=== PATIENT | female | born 1960 | race Two or more races ===

== ENCOUNTER 2017-10-08 06:22 | Inpatient (IN) | payer OTHER, MEDICAID ==
[~2017-10-08] VITALS: Ht 162.6 cm; Wt 59.0 kg
--- NOTE | 2017-10-08 06:30 | NUR ---
TO BED 4 A 56 YO FEMALE PT BB SISTER FROM [facility] C/O CP RADIATING TO NECK 04/13 ON/OFF 3 WEEKS. VSS. NAD NOTED. SKIN WARM AND DRY. PLACED PATIENT ON TELE AND VS MONITORING. GOWNED. COMFORT MEASURES RENDERED.
[2017-10-08] MEDS ORDERED: ONDANSETRON HCL/PF 4 MG/2 ML VIAL ONE (06:35)
[2017-10-08] MEDS ORDERED: HYDROMORPHONE 1 MG/1 ML DISP.SYRIN ONE (06:35)
--- NOTE | 2017-10-08 06:50 | NUR ---
started on the left forearm g18, blood drawn and sent to lab.
--- NOTE | 2017-10-08 06:55 | NUR ---
medicated patient as ordered by Dr Westbrook.
[2017-10-08] MEDS ORDERED: HYDROMORPHONE 1 MG/1 ML DISP.SYRIN IV ONE (07:00)
[2017-10-08] MEDS ORDERED: IV NS 0.9% 1,000 ML BAG IV ONE (07:00)
[2017-10-08] MEDS ORDERED: ONDANSETRON HCL/PF 4 MG/2 ML VIAL IVP ONE (07:00)
--- NOTE | 2017-10-08 07:16 | NUR ---
Endorsed care to Maribel [place] for shaina.
[2017-10-08 07:22] LABS: BASOPHILS % (AUTO) 0.3 % (0.0-2.0); EOSINOPHILS # (AUTO) 0.3 /CMM (0.0-0.7); EOSINOPHILS % (AUTO) 3.5 % (0.0-6.0); HEMATOCRIT 36 % (33-45); HEMOGLOBIN 11.9 g/dL (11.5-14.8); LYMPHOCYTES # (AUTO) 3.4 /CMM (0.8-4.8); LYMPHOCYTES % (AUTO) 37.6 % (20.0-44.0); MEAN CORPUSCULAR HEMOGLOBIN 26 PG (26.0-33.0); MEAN CORPUSCULAR HGB CONC 33 g/dl (31.0-36.0); MEAN CORPUSCULAR VOLUME 79 fL (82-100); MONOCYTES # (AUTO) 0.4 /CMM (0.1-1.30); MONOCYTES % (AUTO) 4.4 % (2.0-12.0); NEUTROPHILS # (AUTO) 4.9 /CMM (1.8-8.9); NEUTROPHILS % (AUTO) 54.2 % (43.0-81.0); PLATELET COUNT (AUTO) 409 /CMM (150-450); RDW COEFFICIENT OF VARIATION 16.8 (11.5-15.0); RED BLOOD CELL COUNT(AUTO) 4.52 MIL/uL (4.0-5.2); WHITE BLOOD COUNT (AUTO) 9.1 K/uL (4.3-11.0)
[2017-10-08 07:30] LABS: CALCIUM, SERUM 10.3 mg/dL (8.5-10.1); CREATININE 0.9 mg/dL (0.6-1.3); POTASSIUM 4.4 mmol/L (3.5-5.1)
[2017-10-08 07:36] LABS: ALBUMIN 2.8 g/dL (3.4-5.0); BILIRUBIN,TOTAL 0.2 mg/dL (0.2-1.0); TOTAL PROTEIN, SERUM 11.5 g/dL (6.4-8.2)
[2017-10-08 07:49] LABS: APPEARANCE,URINE CLEAR (CLEAR); BILIRUBIN,URINE NEGATIVE (NEGATIVE); BLOOD, URINE NEGATIVE Ery/uL (NEGATIVE); COLOR,URINE YELLOW (YELLOW); KETONES,URINE NEGATIVE (NEGATIVE); LEUKOCYTE ESTERASE ,URINE 1+ (NEGATIVE); NITRITE, URINE NEGATIVE (NEGATIVE); PH,URINE 5.5 (5.0-8.0); PROTEIN,URINE NEGATIVE (NEGATIVE); UGLUCOSE NEGATIVE (NEGATIVE); UROBILINOGEN,URINE 0.2 EU/dL (0.2)
[2017-10-08 07:51] LABS: INR 1.05 (0.87-1.13); TROPONIN I 0.443 ng/mL (0.00-0.056)
[2017-10-08 07:58] LABS: BACTERIA,URINE Few /HPF (None Seen); SQUAMOUS EPITHELIAL CELL,UR Few /HPF (None Seen)
[2017-10-08 08:00] LABS: RBC,URINE 0-2 /HPF (0-2)
--- NOTE | 2017-10-08 08:05 | NUR ---
PT TAKEN TO CT.
[2017-10-08] MEDS ORDERED: ASPIRIN 325 MG TABLET PO ONE (08:30)
[2017-10-08] MEDS ORDERED: ASPIRIN 325 MG TABLET ONE (08:39)
--- NOTE | 2017-10-08 08:55 | NUR ---
PAGED EPIC --- ALGORITHM DESIGN ENGINEER IS DR POLLARD.
--- NOTE | 2017-10-08 08:59 | NUR ---
FOOD TRAY PROVIDED- SOFT DIET REQUESTED BY PT.
--- NOTE | 2017-10-08 10:18 | NUR ---
REPORT GIVEN TO LUZ OH FOR TELE [phone].
[2017-10-08] MEDS ORDERED: MAGNESIUM HYDROXIDE 30 ML UDC PO PRN (10:30)
[2017-10-08] MEDS ORDERED: HYDROCODONE/APAP 5/325MG 1 EACH TABLET PO PRN (10:30)
[2017-10-08] MEDS ORDERED: Z GUARD REMEDY 2 OZ OINT TP PRN (10:30)
[2017-10-08] MEDS ORDERED: ACETAMINOPHEN 325 MG TABLET PO PRN (10:30)
[2017-10-08] MEDS ORDERED: MAG HYDROX/AL HYDROX/SIMETH 30 ML UDC PO PRN (10:30)
[2017-10-08] MEDS ORDERED: ONDANSETRON HCL/PF 4 MG/2 ML VIAL IVP PRN (10:30)
[2017-10-08] MEDS ORDERED: ZOLPIDEM TARTRATE 5 MG TABLET PO PRN (10:30)
[2017-10-08] MEDS ORDERED: ALPRAZOLAM 0.25 MG TABLET PO PRN (11:00)
[2017-10-08] MEDS ORDERED: SIMETHICONE 80 MG TAB.CHEW PO PRN (11:00)
[2017-10-08] MEDS: FAMOTIDINE (20 MG) 20 MG TABLET PO SCH ×2 (11:22→20:23)
--- NOTE | 2017-10-08 11:45 | NUR ---
ADMISSION NOTE RECEIVED PT FROM ER. PT ADMITTED FOR C/O CHEST PAIN AND INDIGESTION THAT HAS PERSISTED X 3 WEEKS. A/OX4, NO S/S OF SOB AND RESP DISTRESS. PT COMES FROM HOME, BUT IS A RESIDENT OF [place]. PT ADM TELE, CURRENTLY SR AT 79BPM W/ PVCS. ADMITTING DOCTOR IS DR. POLLARD. IV ACCESS LOCATED ON LEFT AC 18G WITH ORDERS PLACED FOR NS AT 75 ML/HR. PT HAS ELEVATED TROP AT 0.443. ADMISSION ORDERS PLACED. SAFETY MEASURES IN PLACE, CALL LIGHT WITHIN REACH. WILL CONTINUE TO MONITOR.
[2017-10-08] MEDS: HYDROMORPHONE INJ 0.5 MG/0.5 ML SYRINGE IV PRN ×2 (12:49→20:22)
[2017-10-08 13:07] VITALS: BP 118/79
[2017-10-08 16:19] VITALS: BP 122/83
[2017-10-08 20:00] VITALS: BP 115/68
--- NOTE | 2017-10-08 20:00 | NUR ---
RN OPENING NOTES PATIENT IS IN BED, ALERT AND ORIENTED X4. VS STABLE. NO C/O PAIN OR DISCOMFORT AT THIS TIME. NO SOB NOTED. RESPIRATIONS EVEN AND UNLABORED. IV ACCESS ON LEFT AC 18 G PATENT AND INTACT. TELE MONITOR IS IN PLACE, SR WITH PVCS 79 BPM. BED IN LOW AND LOCKED POSITION. SIDE RAILSX2. CALL LIGHT WITHIN EASY REACH. WILL CONTINUE TO MONITOR AND ASSESS DURING THE SHIFT.
[2017-10-09] VITALS (7 sets, daily range): BP systolic 98–126; BP diastolic 62–84
--- NOTE | 2017-10-09 05:03 | NUR ---
PATIENT SLEPT COMFORTABLE THIS SHIFT CHANGING HER OWN POSITION. AMBULATED TO THE BATHROOM WITH STANDBY NOTED NO SOB OR WEAKNESS WITH AMBULATION PATIENT TOLD SHE WILL BE NPO UNTIL SEEN BY THE [employer] IN THE AM2/5 .SHE IS ALERT AND ORIENTATED X4 SPEECH CLEAR MOVING ALL EXTREMITIES AND NO C/O CHESTPAIN THIS SHIFT.NO EDEMA NOTED
[2017-10-09] MEDS: HYDROMORPHONE INJ 0.5 MG/0.5 ML SYRINGE IV PRN ×3 (05:49→13:11)
--- NOTE | 2017-10-09 06:06 | NUR ---
MEDICATED WITH DILAUDID 0.25 MG FOR C/O OF ACHING PAIN OF A SCALE OF 8 AREA COLLAR BONE AREA AND UP
[2017-10-09 06:53] LABS: BASOPHILS % (AUTO) 0.5 % (0.0-2.0); EOSINOPHILS # (AUTO) 0.2 /CMM (0.0-0.7); EOSINOPHILS % (AUTO) 2.6 % (0.0-6.0); HEMATOCRIT 34 % (33-45); HEMOGLOBIN 11.3 g/dL (11.5-14.8); LYMPHOCYTES # (AUTO) 1.9 /CMM (0.8-4.8); LYMPHOCYTES % (AUTO) 28.6 % (20.0-44.0); MEAN CORPUSCULAR HEMOGLOBIN 26 PG (26.0-33.0); MEAN CORPUSCULAR HGB CONC 33 g/dl (31.0-36.0); MEAN CORPUSCULAR VOLUME 79 fL (82-100); MONOCYTES # (AUTO) 0.5 /CMM (0.1-1.30); MONOCYTES % (AUTO) 6.9 % (2.0-12.0); NEUTROPHILS # (AUTO) 4.2 /CMM (1.8-8.9); NEUTROPHILS % (AUTO) 61.4 % (43.0-81.0); PLATELET COUNT (AUTO) 377 /CMM (150-450); RDW COEFFICIENT OF VARIATION 16.3 (11.5-15.0); RED BLOOD CELL COUNT(AUTO) 4.29 MIL/uL (4.0-5.2); WHITE BLOOD COUNT (AUTO) 6.8 K/uL (4.3-11.0)
[2017-10-09 07:18] LABS: CALCIUM, SERUM 8.5 mg/dL (8.5-10.1); CREATININE 0.8 mg/dL (0.6-1.3); MAGNESIUM 1.5 mg/dL (1.8-2.4); POTASSIUM 4.2 mmol/L (3.5-5.1)
[2017-10-09 07:23] LABS: THYROID STIMULATING HORMONE 5.061 uIU/mL (0.358-3.74)
--- NOTE | 2017-10-09 08:00 | NUR ---
rn notes received patient in the room resting in the bed. no acute respiratory distress, v/s taken stable, iv line on left ac are intact, call light within to reach, safety precaution maintained all the time.
--- NOTE | 2017-10-09 09:00 | NUR ---
RN NOTES PATIENT FOCUSED SMOKING AT THIS TIME. TEACH PATIENT S/S OF CAUSES, AND REDUCES THE HEALTH. PATIENT STATE " I AM OLD ENOUGH AND I DO NOT NEED A TEACHING " . DR POLLARD AWARE OF . PER TOOL AND GAUGE INSPECTOR ESCORTED PATIENT TO THE OUTSIDE FOR SMOKE. CONTINUED MONITORING.
[2017-10-09] MEDS: FAMOTIDINE (20 MG) 20 MG TABLET PO SCH ×2 (09:14→21:24)
[2017-10-09] MEDS ORDERED: SOD FERRIC GLUC 125 MG in IV NS 0.9% 100 ML IV SCH (11:00)
[2017-10-09] MEDS: Magnesium 1GM/D5W 100ML PREMIX 100 ML IV SCH ×3 (11:43→13:43)
--- NOTE | 2017-10-09 13:11 | NUR ---
RN NOTES ADMINISTERED DILAUDID 0.25 MG /ML IV PUSH UPPER NECK PAIN 6/10, PER PATIENT REQUEST, V/S TAKEN BP-112/73, P-82, CALL LIGHT WITHIN TO REACH, CONTINUED MONITORING.
[2017-10-09] MEDS: IV NS 0.9% 1,000 ML IV PRN (17:21)
--- NOTE | 2017-10-09 18:19 | NUR ---
RN NOTES PATIENT SISTER STATES THAT PATIENT WAS TESTED IN ANOTHER STATE AND SHE RECEIVED CALL FOR RESENT BLOOD TEST RESULT STATING POSITIVE FOR SYPHILIS. NOTIFIED Dr POLLARD, AND GET NEW ORDER ID CONSULTATION. ORDER TAKEN AND CARRIED OUT.
--- NOTE | 2017-10-09 18:26 | NUR ---
RN NOTES PATIENT D/C FOR TELE.
--- NOTE | 2017-10-09 19:40 | NUR ---
RN NOTES PATIENT IN THE BED AFTER SMOKING, MEDICATING WERE ADMINISTERED FOR PAIN EFFECTIVE, SISTER NEXT TO THE BED, CALL LIGHT WITHIN TO REACH. ENDORSED ONCOMING NURSE FOR FIDEL.
--- NOTE | 2017-10-09 19:40 | NUR ---
MS RN OPENING NOTES RECEIVED PATIENT RESTING IN BED, NO C/O PAIN, NO SOB, NO ACUTE DISTRESS NOTED @ THIS TIME. A & O X 4, AMBULATORY. ON MED SURGE. NO C/O CHEST PAIN VERBALIZED. SAFETY MEASURES & UNIVERSAL PRECAUTIONS ARE BEING OBSERVED. BED IN LOW LOCKED POSITION. CALL LIGHT WITHIN REACH. WILL CONTINUE TO MONITOR CLOSELY.
--- NOTE | 2017-10-10 00:15 | NUR ---
REFUSED IVF & REINSERTION IF IV LINE PATIENT HAD LEFT WRIST IV ACCESS BUT NOTED TO BE INFILTRATED. ATTEMPTED MULTIPLE TIMES TO REMOVE THE OLD IV & REINSERT NEW ONE BUT PT KEPT REFUSING STATING " I TAKE ENOUGH PO FLUIDS, I DON'T NEED IT " DESPITE OF EXPLANATION OF RISK & BENEFITS OF NOT HAVING IV ACCESS & IVF, PT STILL CONTINUED TO REFUSE. MD WAS PAGED & NOTIFIED. WILL ENCOURAGE PO FLUIDS TOLERATED. MONITORING CLOSELY.
--- NOTE | 2017-10-10 05:37 | NUR ---
CONTINUED REFUSING IV INSERTION RE APPROACHED THE PT SINCE SHE MENTIONED TO HAVE THE IV INSERTION DONE IN AM INSTEAD OF LAST NIGHT BUT SHE STILL CONTINUED REFUSING & WANTED TO BE LEFT ALONE TO SLEEP. WILL ENDORSE TO AM RN TO TRY TO INSERT IV CATHETER IF PT AGREES.
--- NOTE | 2017-10-10 06:27 | NUR ---
MS RN CLOSING NOTES PATIENT SLEPT WELL @ NIGHT. NO C/O PAIN, NO SOB, NO ACUTE DISTRESS NOTED @ THIS TIME. A & O X 4, BRP. ON MED SURGE. NO C/O CHEST PAIN VERBALIZED. OLD IV ACCESS TO LEFT WRIST WHICH IS INFILTRATED BUT PT REFUSED TO TAKE IT OUT & SAID DO IT IN THE MORNING BUT WHEN TRIED IN AM, SHE STILL CONTINUED TO REFUSE. SAFETY MEASURES & UNIVERSAL PRECAUTIONS ARE BEING OBSERVED. BED IN LOW LOCKED POSITION. CALL LIGHT WITHIN REACH. WILL ENDORSE TO AM RN FOR CONTINUITY OF CARE.
[2017-10-10 06:57] LABS: BASOPHILS % (AUTO) 0.2 % (0.0-2.0); EOSINOPHILS # (AUTO) 0.1 /CMM (0.0-0.7); EOSINOPHILS % (AUTO) 1.8 % (0.0-6.0); HEMATOCRIT 34 % (33-45); HEMOGLOBIN 11.4 g/dL (11.5-14.8); LYMPHOCYTES # (AUTO) 1.7 /CMM (0.8-4.8); LYMPHOCYTES % (AUTO) 21.5 % (20.0-44.0); MEAN CORPUSCULAR HEMOGLOBIN 26 PG (26.0-33.0); MEAN CORPUSCULAR HGB CONC 34 g/dl (31.0-36.0); MEAN CORPUSCULAR VOLUME 78 fL (82-100); MONOCYTES # (AUTO) 0.4 /CMM (0.1-1.30); MONOCYTES % (AUTO) 4.4 % (2.0-12.0); NEUTROPHILS # (AUTO) 5.9 /CMM (1.8-8.9); NEUTROPHILS % (AUTO) 72.1 % (43.0-81.0); PLATELET COUNT (AUTO) 368 /CMM (150-450); RDW COEFFICIENT OF VARIATION 16.5 (11.5-15.0); RED BLOOD CELL COUNT(AUTO) 4.33 MIL/uL (4.0-5.2); WHITE BLOOD COUNT (AUTO) 8.1 K/uL (4.3-11.0)
[2017-10-10 07:05] LABS: CALCIUM, SERUM 8.5 mg/dL (8.5-10.1); CREATININE 0.9 mg/dL (0.6-1.3); MAGNESIUM 2.1 mg/dL (1.8-2.4); PHOSPHORUS 3.6 mg/dL (2.5-4.9); POTASSIUM 4.6 mmol/L (3.5-5.1)
[2017-10-10 08:00] VITALS: BP 104/70
--- NOTE | 2017-10-10 08:18 | NUR ---
MS RN OPENING NOTES RECEIVED PATIENT IN BED ASLEEP COMFORTABLY, EASILY AROUSED WITH VERBAL STIMULI. ON ROOM AIR. NO SOB, NO SIGNS OF DISTRESS NOTED AT THIS TIME. A & O X 4, BRP. OLD IV ACCESS TO LEFT WRIST IS INFILTRATED, PATIENT REFUSED TO TAKE IT OUT DURING [employer] INST[employer]ER AND STILL CONTINUES TO REFUSE. SAFETY MEASURES & UNIVERSAL PRECAUTIONS ARE BEING OBSERVED. BED IN LOW LOCKED POSITION. CALL LIGHT WITHIN REACH. SIDE RAILS UP X2, WILL CONTINUE TO MONITOR.
[2017-10-10 09:00] VITALS: BP 104/70
[2017-10-10] MEDS: FAMOTIDINE (20 MG) 20 MG TABLET PO SCH ×2 (09:20→20:42)
[2017-10-10] MEDS: LEVOTHYROXINE SODIUM 100 MCG TABLET PO SCH (09:20)
[2017-10-10] MEDS: ASPIRIN 81 MG TAB.CHEW PO SCH (09:24)
--- NOTE | 2017-10-10 10:27 | NUR ---
Social service consult requested by Dr. Segal regarding homelessness. Pt. is a 56 year old female who was admitted to [facility] for Chest pain. SW met with pt. bedside. Pt's sister Yuliya was bedside. Pt. is alert and oriented x 3. Pt. was residing at [address] [place] [address] in [place] prior to hospitalization. However, pt. will be moving to [place] with her sister Yuliya. Pt's address in [place] is [address] [place] [address]. Pt's emergency contact is her sister Lexy . Pt. has a diagnosis of Bipolar. Pt. has a history of psychiatric hospitalizations. The last hospitalization was 15 years ago. Pt. is not taking any psychotropic medications at this time. Pt. denies suicidal/homicidal ideations and visual/auditory hallucinations at this time. Pt. denies alcohol and drug use. Pt. is unable to travel via plane at this time due to her heart attack. Pt's sister informed SW that she will transport her sister back to [place] upon discharge via car or train. No other social service needs are requested at this time. SW is available if needed.
[2017-10-10] MEDS: HYDROMORPHONE INJ 0.5 MG/0.5 ML SYRINGE IV PRN (14:48)
[2017-10-10] MEDS: SOD FERRIC GLUC 125 MG in IV NS 0.9% 100 ML IV SCH (14:58)
[2017-10-10 16:00] VITALS: BP 105/70
--- NOTE | 2017-10-10 19:25 | NUR ---
MS RN CLOSING NOTES PATIENT IN BED AWAKE, ALERT ORIENTED X 4. ON ROOM AIR. NO SOB, NO SIGNS OF DISTRESS NOTED AT THIS TIME. BRP. IV ACCESS IN LEFT FA, HL 24G. PATIENT AND INTACT. SAFETY MEASURES & UNIVERSAL PRECAUTIONS ARE BEING OBSERVED. BED IN LOW LOCKED POSITION. CALL LIGHT WITHIN REACH. SIDE RAILS UP X2. WILL ENDORSE TO PN SHIFT FOR CONTINUATION OF CARE.
--- NOTE | 2017-10-10 19:40 | NUR ---
MS RN OPENING NOTES RECEIVED PATIENT RESTING IN BED, SISTER @ BEDSIDE. NO C/O PAIN, NO SOB, NO ACUTE DISTRESS NOTED @ THIS TIME. A & O X 4, AMBULATORY. NO C/O CHEST PAIN VERBALIZED. IV ACCESS TO LFA, INTACT & PATENT RUNNING WITH NS ON & OFF SINCE PT REFUSES TO BE CONNECTED TO THE IVF CONTINUOUSLY. SAFETY MEASURES & UNIVERSAL PRECAUTIONS ARE BEING OBSERVED. BED IN LOW LOCKED POSITION. CALL LIGHT WITHIN REACH. WILL CONTINUE TO MONITOR CLOSELY.
[2017-10-10 20:00] VITALS: BP 111/73
--- NOTE | 2017-10-10 20:42 | NUR ---
PRN TYLENOL GIVEN PATIENT C/O MILD GENERALIZED BODY ACHE & REQUESTED TO TAKE TYLENOL. PRN TYLENOL GIVEN. WILL REASSESS FOR EFFECTIVENESS.
[2017-10-11 05:18] LABS: *BASOS 1 % (Not Estab.); *BASOS, ABSOLUTE 0.1 x10E3/uL (0.0-0.2); *EOS 3 % (Not Estab.); *EOS, ABSOLUTE 0.2 x10E3/uL (0.0-0.4); *HCT 35.1 % (34.0-46.6); *HGB 11.3 g/dL (11.1-15.9); *IMMATURE GRANULOCYTES 0 % (Not Estab.); *LYMPHOCYTES 23 % (Not Estab.); *MCH 25.6 pg (26.6-33.0); *MCHC 32.2 g/dL (31.5-35.7); *MCV 79 fL (79-97); *MONOCYTES 5 % (Not Estab.); *MONOS, ABSOLUTE 0.4 x10E3/uL (0.1-0.9); *NEUTROPHILS 68 % (Not Estab.); *NEUTROPHILS, ABSOLUTE 5.8 x10E3/uL (1.4-7.0); *PLT 320 x10E3/uL (150-379); *RBC 4.42 x10E6/uL (3.77-5.28); *RDW 16.1 % (12.3-15.4)
[2017-10-11] MEDS: HYDROMORPHONE INJ 0.5 MG/0.5 ML SYRINGE IV PRN ×2 (06:26→18:04)
--- NOTE | 2017-10-11 06:26 | NUR ---
PRN DILAUDID GIVEN PATIENT C/O PAIN TO LATERAL NECK SIDE, ASKED ONLY TO TAKE DILAUDID @ THIS TIME. PRN DILAUDID GIVEN, WILL REASSESS FOR EFFECTIVENESS.
--- NOTE | 2017-10-11 07:15 | NUR ---
MS RN CLOSING NOTES PATIENT SLEPT INTERMITTENTLY IN BED. C/O PAIN NOTED, PRN PAIN MED GIVEN. NO SOB, NO ACUTE DISTRESS NOTED @ THIS TIME. A & O X 4, AMBULATORY. NO C/O CHEST PAIN VERBALIZED. IV ACCESS TO LFA, INTACT & PATENT, REFUSED IVF @ NIGHT. SAFETY MEASURES & UNIVERSAL PRECAUTIONS ARE BEING OBSERVED. BED IN LOW LOCKED POSITION. CALL LIGHT WITHIN REACH. ENDORSED TO AM RN FOR FIDEL.
[2017-10-11 07:25] LABS: BASOPHILS # (AUTO) 0.1 /CMM (0.0-0.2); BASOPHILS % (AUTO) 0.8 % (0.0-2.0); EOSINOPHILS # (AUTO) 0.2 /CMM (0.0-0.7); EOSINOPHILS % (AUTO) 2.6 % (0.0-6.0); HEMATOCRIT 34 % (33-45); HEMOGLOBIN 11.2 g/dL (11.5-14.8); LYMPHOCYTES # (AUTO) 2.5 /CMM (0.8-4.8); LYMPHOCYTES % (AUTO) 31.3 % (20.0-44.0); MEAN CORPUSCULAR HEMOGLOBIN 26 PG (26.0-33.0); MEAN CORPUSCULAR HGB CONC 33 g/dl (31.0-36.0); MEAN CORPUSCULAR VOLUME 79 fL (82-100); MONOCYTES # (AUTO) 0.5 /CMM (0.1-1.30); MONOCYTES % (AUTO) 6.2 % (2.0-12.0); NEUTROPHILS # (AUTO) 4.6 /CMM (1.8-8.9); NEUTROPHILS % (AUTO) 59.1 % (43.0-81.0); PLATELET COUNT (AUTO) 333 /CMM (150-450); RDW COEFFICIENT OF VARIATION 16.4 (11.5-15.0); RED BLOOD CELL COUNT(AUTO) 4.24 MIL/uL (4.0-5.2); WHITE BLOOD COUNT (AUTO) 7.8 K/uL (4.3-11.0)
--- NOTE | 2017-10-11 07:45 | NUR ---
MS RN OPENING NOTES RECEIVED PATIENT IN BED, AWAKE, ALERT ORIENTED X4. ON ROOM AIR. NO SIGNS OF SOB, RESPIRATIONS EVEN AND UNLABORED. NO SIGNS OF DISTRESS AND DISCOMFORT NOTED. IV SITE AT LEFT FA, PATENT AND INTACT. PATIENT IS REFUSING IV FLUIDS. BRP, KEPT CLEAN, DRY AND COMFORTABLE. SAFETY MEASURES IN PLACE, CALL LIGHT WITHIN EASY REACH, BED IS ON LOW LOCKED POSITION, SIDE RAILS UPX2. WILL CONTINUE TO MONITOR.
[2017-10-11 07:47] LABS: ALBUMIN 2.6 g/dL (3.4-5.0); BILIRUBIN,TOTAL 0.2 mg/dL (0.2-1.0); CALCIUM, SERUM 8.9 mg/dL (8.5-10.1); CREATININE 0.9 mg/dL (0.6-1.3); MAGNESIUM 1.9 mg/dL (1.8-2.4); POTASSIUM 4.1 mmol/L (3.5-5.1); TOTAL PROTEIN, SERUM 10.9 g/dL (6.4-8.2)
[2017-10-11 07:50] LABS: TROPONIN I 0.092 ng/mL (0.00-0.056)
[2017-10-11 08:00] VITALS: BP 118/85
[2017-10-11] MEDS: LEVOTHYROXINE SODIUM 100 MCG TABLET PO SCH (08:28)
[2017-10-11] MEDS: ASPIRIN 81 MG TAB.CHEW PO SCH (08:28)
[2017-10-11] MEDS: FAMOTIDINE (20 MG) 20 MG TABLET PO SCH ×2 (08:28→21:18)
[2017-10-11] MEDS: SOD FERRIC GLUC 125 MG in IV NS 0.9% 100 ML IV SCH (15:03)
[2017-10-11 15:12] LABS: *% CD 4 POS. LYMPH 30.4 % (30.8-58.5); *% CD 8 POS. LYMPH 60.5 % (12.0-35.5); *ABSOLUTE CD 4 HELPER 608 /uL (359-1519); *ABSOLUTE CD 8 SUPPRESSOR 1210 /uL (109-897)
[2017-10-11 16:00] VITALS: BP 130/80
[2017-10-11] MEDS: IV NS 0.9% 1,000 ML IV PRN (17:56)
--- NOTE | 2017-10-11 19:30 | NUR ---
MS RN NOTES RECEIVED ON BED A/O X4,BREATHING REGULAR,NOT IN ANY FORM OF DISTRESS,LFA SALINE LOCK #24 INTACT AND PATENT,IVF ON STANDBY,REFUSED IVF.NOTED RASHES ON STOMACH.SEEN BY VAN KING,WITH NEW ORDERS NOTED AND CARRIED OUT.CALL LIGHT IN REACH,NEEDS ANTICIPATED.
--- NOTE | 2017-10-11 19:31 | NUR ---
MS RN CLOSING NOTES PATIENT IN BED, SLEEPING COMFORTABLY, EASILY AROUSED. ON ROOM AIR. NO SIGNS OF SOB, RESPIRATIONS EVEN AND UNLABORED. NO SIGNS OF DISTRESS AND DISCOMFORT NOTED. IV SITE AT LEFT FA, PATENT AND INTACT. PATIENT IS REFUSING IV FLUIDS. BRP, KEPT CLEAN, DRY AND COMFORTABLE. SAFETY MEASURES IN PLACE, CALL LIGHT WITHIN EASY REACH, BED IS ON LOW LOCKED POSITION, SIDE RAILS UPX2. WILL ENDORSE TO PM SHIFT FOR CONTINUATION OF CARE..
[2017-10-11 20:00] VITALS: BP 101/60
[2017-10-11] MEDS ORDERED: PENICILLIN G BENZATHINE 2.4 MMU/4 ML ML IM SCH (20:00)
--- NOTE | 2017-10-11 21:18 | NUR ---
MS RN NOTES STARTED ON BICILLIN I-A GIVEN IM ON LEFT BUTTOCKS FOR SYPHYLLIS
[2017-10-12] MEDS: HYDROMORPHONE INJ 0.5 MG/0.5 ML SYRINGE IV PRN ×3 (00:57→12:39)
--- NOTE | 2017-10-12 00:57 | NUR ---
MS RN NOTES PAIN MANAGEMENT C/O GENRALIZED PAIN 8/10 ON PAIN SCALE,DILAUDID 0.25MG IV GIVEN ORDERED
--- NOTE | 2017-10-12 05:37 | NUR ---
MS RN NOTES PAIN MANAGEMENT WOKE UP WITH GENERALIZED BODY ACHE,MEDICATED WITH DILAUDID 0.25MG IV FOR BODY ACHE 8/10 ON PAIN SCALE.
--- NOTE | 2017-10-12 06:41 | NUR ---
MS RN NOTES PAIN MANAGEMENT,IVF INFUSING AT THIS TIME,PATIENT VERBALIZED OF GOING HOME TODAY.CALL LIGHT IN REACH,NEEDS ATTENDED.WILL ENDORSE TO DAY NURSE FOR FIDEL.
--- NOTE | 2017-10-12 07:10 | NUR ---
MS/RN OPENING NOTE RECEIVED PATIENT IN BED AWAKE. ALERT AND ORIENTED X4. RESPIRATION REGULAR AND UNLABORED. DENIES SOB, PAIN AT THIS TIME. IN NO APPARENT DISTRESS. LFA IV PATENT AND IV INFUSING WITH NO S/S INFILTRATION. BED LOW AND LOCKED. SIDE RAILS UP X2. CALL LIGHT WITHIN REACH. WILL CONTINUE TO MONITOR.
[2017-10-12 08:00] VITALS: BP 122/66
[2017-10-12] MEDS: LEVOTHYROXINE SODIUM 100 MCG TABLET PO SCH (08:30)
[2017-10-12] MEDS: ASPIRIN 81 MG TAB.CHEW PO SCH (08:30)
[2017-10-12] MEDS: FAMOTIDINE (20 MG) 20 MG TABLET PO SCH (08:30)
[2017-10-12] MEDS ORDERED: PENI IM (11:39)
[2017-10-12] MEDS ORDERED: HYDR-3972 PO (11:39)
[2017-10-12] MEDS: SOD FERRIC GLUC 125 MG in IV NS 0.9% 100 ML IV SCH (14:00)
--- NOTE | 2017-10-12 14:41 | NUR ---
MS/RN NOTE WAITING FOR FERRLECIT. PHARM MADE AWARE TO DELIVER.
--- NOTE | 2017-10-12 15:10 | NUR ---
MS/RN NOTE F[facility]LE[facility] NOT DELIVERED YET. PATIENT IS GETTING DISCHARGE AND DOES NOTE WANT TO WAIT FOR THE MEDICATION.
--- NOTE | 2017-10-12 15:20 | NUR ---
MS/RN CLOSING NOTE PATIENT ALERT AND ORIENTED X4. RESPIRATION REGULAR AND UNLABORED. DENIES SOB, PAIN AT THIS TIME. DISCHARGE SKIN ASSESSMENT DONE. ALL NEEDS ATTENDED. DISCHARGE EDUCATION/INSTRUCTIONS GIVE. PHYSICIAN PRESCRIPTION`S COPY MADE SAVED IN THE CHARGE AND THE ORIGINAL GIVEN TO THE PATIENT. THE PATIENT WITH AN DISCHARGE ORDER FOR PENICCILLIN G NEMZATHINE Q7D 14 DAYS. CASE MANAGEMENT (GABRIELA) WAS MADE AWARE TO ARRANGE HOME HEALTH. HOWEVER, THE PATIENT AND THE SISTER STATED THE PATIENT WILL BE GOING TO [place] COMING MONDAY AND NO NEED FOR HOME HEALTH. THE CHARGE NURSE WAS MADE AWARE AND MD INFORMATION FOR MEDICATION CYTOLOGY SUPERVISOR FROM PHARMACY WAS GIVEN. THE PATIENT AND THE SISTER VERBALIZED UNDERSTANDING AND STATED THAT THEY WILL ADMINISTER THE MEDICATION. GABRIELA FOREST AIDE WAS MADE AWARE. CHARGE NURSE WAS UPDATED. Addendum: 10/12/17 at 1534 by BOBBY MASON RN PATIENT LEFT THE HOSPITAL WITH SISTER. PATIENT IN STABLE CONDITION.
== END 2017-10-12 15:15 | disposition home or self-care (01) | DRG 281 ==
LOC: ER 06:32 → TELE 10:43 → MED 10-09 18:35
PROVIDERS: ADMIT Internal Medicine; ATTEND Internal Medicine
DX: I21.A1 Myocardial infarction type 2 (principal); E44.0 Moderate protein-calorie malnutrition; I11.0 Hypertensive heart disease with heart failure; I50.9 Heart failure, unspecified; B19.20 Unspecified viral hepatitis C without hepatic coma; E78.5 Hyperlipidemia, unspecified; F17.200 Nicotine dependence, unspecified, uncomplicated; R59.1 Generalized enlarged lymph nodes; Z68.22 Body mass index [BMI] 22.0-22.9, adult; F15.90 Other stimulant use, unspecified, uncomplicated; A53.9 Syphilis, unspecified; F31.9 Bipolar disorder, unspecified; G89.29 Other chronic pain; I73.00 Raynaud's syndrome without gangrene; Z79.52 Long term (current) use of systemic steroids; M19.90 Unspecified osteoarthritis, unspecified site
CPT/HCPCS: 36415; 71045-TC; 71250-TC; 80048-TC; 80053-TC; 80061-TC; 80076-TC; 81000-TC; 82746; 83540-TC; 83605-TC; 83735-TC; 84100-TC; 84443-TC; 84484-TC; 85025-TC; 85730-TC; 86360; 86592; 87040-TC; 87081-TC; 87086-TC; 93307-TC; 94799-TC; J0558; J1170; J2405; J2916; J3475; J7030